=== PATIENT | male | born 1995 | race Caucasian/White ===

== ENCOUNTER → 2022-01-02 14:31 | Outpatient (BNVA) | payer BC, SELFPAY | PROVIDERS: Family Provider Family Medicine; PCP Family Medicine; Visit Provider Family Medicine | DX: E11.9 Type 2 diabetes mellitus without complications (principal) | CPT/HCPCS: 80053; 80061; 83036 ==

== ENCOUNTER → 2022-07-15 15:24 | Outpatient (BNVA) | payer BC, SELFPAY | PROVIDERS: Family Provider Family Medicine; PCP Family Medicine; Visit Provider Family Medicine | DX: E11.9 Type 2 diabetes mellitus without complications (principal) | CPT/HCPCS: 80053; 80061; 83036 ==

== ENCOUNTER → 2023-04-29 14:37 | Outpatient (BNVA) | payer BC, SELFPAY | PROVIDERS: Family Provider Family Medicine; PCP Family Medicine; Visit Provider Family Medicine | DX: E11.9 Type 2 diabetes mellitus without complications (principal); Z13.6 Encounter for screening for cardiovascular disorders | CPT/HCPCS: 80053; 80061; 83036; 85025 ==

== ENCOUNTER → 2024-05-26 10:51 | Outpatient (BNVA) | payer BC, SELFPAY | PROVIDERS: Family Provider Family Medicine; PCP Family Medicine; Visit Provider Family Medicine | DX: E11.9 Type 2 diabetes mellitus without complications (principal); R79.89 Other specified abnormal findings of blood chemistry; R53.83 Other fatigue; R68.82 Decreased libido | CPT/HCPCS: 80053; 80061; 82040; 83036; 84270; 84403 ==

== ENCOUNTER 2024-07-05 16:40 | Outpatient (CLI) | payer BC, SELFPAY | END 2024-07-05 16:41 | disposition home or self-care (01) | LOC: SLEEP 16:41 | PROVIDERS: Family Provider Family Medicine; PCP Family Medicine; Visit Provider Family Medicine | DX: G47.33 Obstructive sleep apnea (adult) (pediatric) (principal); R53.83 Other fatigue; R68.82 Decreased libido | CPT/HCPCS: G0399 ==

== ENCOUNTER → 2024-12-29 08:05 | Outpatient (BNVA) | payer BC, SELFPAY | PROVIDERS: Family Provider Family Medicine; PCP Family Medicine; Visit Provider Family Medicine | DX: E11.9 Type 2 diabetes mellitus without complications (principal); G47.33 Obstructive sleep apnea (adult) (pediatric); R79.89 Other specified abnormal findings of blood chemistry; R68.82 Decreased libido; R53.83 Other fatigue | CPT/HCPCS: 80053; 80061; 82040; 83036; 84270; 84403; 85025 ==